=== PATIENT | female | born 1990 ===

== ENCOUNTER 2018-01-09 15:42 | Outpatient (REF) | payer SELFPAY ==
[2018-01-09 19:27] LABS: ALT 26 U/L (12-78); AST 17 U/L (15-37); Alkaline Phosphatase 100 U/L (46-116); Amylase 73 U/L (25-115); Anion Gap 9.9 mmol/L (3-11); BUN 15 mg/dL (7-18); Bilirubin, Total 0.3 mg/dL (0.2-1.0); CO2 27.1 mmol/L (21.0-32.0); CREATININE 0.72 mg/dL (0.55-1.02); Calcium 8.7 mg/dL (8.5-10.1); Chloride 105 mmol/L (98-107); Glucose 103 mg/dL (70-100); Lipase 194 U/L (73-393); Potassium 3.7 mmol/L (3.5-5.1); Sodium 142 mmol/L (136-145); Total Protein 7.3 g/dL (6.4-8.2)
== END 2018-01-09 16:02 ==
LOC: NCHCN 15:42
PROVIDERS: PCP Family Medicine; Visit Provider Nurse Practitioner Family
DX: R19.8 Other specified symptoms and signs involving the digestive system and abdomen (principal)
CPT/HCPCS: 80053; 83690; 82150

== ENCOUNTER 2018-02-13 15:37 | Outpatient (REF) | payer SELFPAY | END 2018-02-13 15:57 | LOC: NCHCN 15:37 | PROVIDERS: PCP Family Medicine; Visit Provider Nurse Practitioner Family | DX: R10.31 Right lower quadrant pain (principal); Z53.8 Procedure and treatment not carried out for other reasons ==

== ENCOUNTER 2018-03-04 11:05 | Outpatient (REF) | payer SELFPAY ==
[2018-03-06 13:43] LABS: Helicobacter pylori Ag, Feces Positive (NEGAT)
== END 2018-03-04 11:25 ==
LOC: NCHCN 11:05
PROVIDERS: PCP Family Medicine; Visit Provider Nurse Practitioner Family
DX: R10.9 Unspecified abdominal pain (principal)
CPT/HCPCS: 87338; 87505

== ENCOUNTER 2018-05-05 11:18 | Outpatient (REF) | payer SELFPAY ==
[2018-05-13 12:36] LABS: Helicobacter pylori Ag, Feces Negative (NEGAT)
== END 2018-05-05 11:38 ==
LOC: NCHCN 11:18
PROVIDERS: PCP Family Medicine; Visit Provider Nurse Practitioner Family
DX: B96.81 Helicobacter pylori [H. pylori] as the cause of diseases classified elsewhere (principal)
CPT/HCPCS: 87338

== ENCOUNTER 2019-02-25 09:34 | Outpatient (REF) | payer SELFPAY | END 2019-02-25 09:54 | LOC: NCHCN 09:34 | PROVIDERS: PCP Family Medicine; Visit Provider Nurse Practitioner Family | DX: R35.0 Frequency of micturition (principal) | CPT/HCPCS: 87086 ==

== ENCOUNTER 2019-12-23 11:40 | Outpatient (REF) | payer SELFPAY ==
[2019-12-23 23:19] LABS: TSH (W/Ref FT4) 1.32 uIU/mL (0.36-3.74)
== END 2019-12-23 12:00 ==
LOC: NCHCN 11:40
PROVIDERS: PCP Nurse Practitioner Family; Visit Provider Nurse Practitioner Family
DX: F45.8 Other somatoform disorders (principal)
CPT/HCPCS: 84443

== ENCOUNTER 2020-01-19 02:21 | Outpatient (CLI) | payer SELFPAY ==
--- NOTE | 2020-01-19 11:00 | NS.NUTBLAN_ITS ---
ASSESSMENT: Eva (29 y/o Female) presents for nutrition consultation r/t IBS w/ hx NVD . Noted: speaks Syrian. [employer] was used for entire encounter. She arrived with her who waited for her outside with their 3 month old baby. She reports that the NVD has subsided. She has GERD and is not on PPI or antacid at this time. We reviewed her diet and this RD explained which foods to avoid in order to mitigate symptoms of IBS and which foods are recommended. She understands that sensitivity varies from person to person. Documentation reveals that she has been under stress. Noted: she is now on 10 mg amitriptyline. She is currently 153% IBW with BMI>30 indicating obesity. INTERVENTION: Discussed the relationship between stress and IBS symptoms. went through examples of foods that she could try adding or eliminating to help w/ IBS symptoms. Provided take home FODMAP and IBS diet materials in Syrian and Urdu. Reviewed fluid needs to include current breast feeding regimen. Verfied ~500ml extra fluids per day with database management specialist at [facility]. Recommended that [place] f/u with MD for counseling services to help with stress management. Enc adequate fluids to help with dehydration and fatigue. Utilized [facility] scholarship program to help with medical costs of this encounter as patient had insurance concerns and limited funds with four small children at home.Recommend PPI or antacid to help w/ indigestion/GERD. PLAN: Will F/U with [facility] to reiterate diet recommendations for Mary Anne with tear down worker Tonja. Time Spent: 4 units/ 60 minutes
== END 2020-01-19 02:41 ==
PROVIDERS: PCP Nurse Practitioner Family; Visit Provider Dietitian, Registered
DX: K58.0 Irritable bowel syndrome with diarrhea (principal); K21.9 Gastro-esophageal reflux disease without esophagitis; Z71.3 Dietary counseling and surveillance
CPT/HCPCS: 97802

== ENCOUNTER → 2020-04-12 21:38 | Outpatient (REF) | payer SELFPAY | LOC: NCHCN 21:38 | PROVIDERS: PCP Nurse Practitioner Family; Visit Provider Physician Assistant | DX: R30.0 Dysuria (principal) | CPT/HCPCS: 87086; 87480; 87510; 87660 ==

== ENCOUNTER 2021-01-04 19:39 | Outpatient (REF) | payer SELFPAY | END 2021-01-04 19:40 | disposition home or self-care (01) | LOC: NCHCN 19:39 | PROVIDERS: PCP Nurse Practitioner Family; Visit Provider Nurse Practitioner Family | DX: R35.0 Frequency of micturition (principal) | CPT/HCPCS: 87086 ==

== ENCOUNTER 2021-02-21 16:27 | Outpatient (REF) | payer SELFPAY | END 2021-02-21 16:28 | disposition home or self-care (01) | LOC: NCHCN 16:27 | PROVIDERS: PCP Nurse Practitioner Family; Visit Provider Nurse Practitioner Family | DX: R30.0 Dysuria (principal) | CPT/HCPCS: 87086 ==

== ENCOUNTER 2021-08-29 09:52 | Outpatient (REF) | payer SELFPAY ==
[2021-08-29 19:39] LABS: MCH 31.3 pg (27.0-33.0); MCHC 33.3 % (32.0-36.0); MCV 94 fL (80-95); MPV 11.1 fL (8.0-11.0); Platelet Count 193 10^3/uL (130-400); RBC 4.15 10^6/uL (3.93-5.22); RDW 12.5 % (11.7-14.6); RDW-SD 43.4 fL; WBC 5.22 10^3/uL (4.4-10.8)
== END 2021-08-29 09:53 | disposition home or self-care (01) ==
LOC: NCHCN 09:52
PROVIDERS: PCP Nurse Practitioner Family; Visit Provider Nurse Practitioner Family
DX: R63.4 Abnormal weight loss (principal)
CPT/HCPCS: 85027; 84443

== ENCOUNTER 2021-09-22 20:04 | Outpatient (REF) | payer SELFPAY ==
[2021-09-25 16:19] LABS: Helicobacter pylori Ag, Feces Negative (Negative)
== END 2021-09-22 20:05 | disposition home or self-care (01) ==
LOC: NCHCN 20:04
PROVIDERS: PCP Nurse Practitioner Family; Visit Provider Nurse Practitioner Family
DX: R63.4 Abnormal weight loss (principal); R10.9 Unspecified abdominal pain
CPT/HCPCS: 87338